=== PATIENT | female | born 1945 | race Caucasian/White ===

== ENCOUNTER 2021-02-19 12:58 | Emergency (ER) | payer OTHER ==
[~2021-02-19] VITALS: Ht 152.4 cm; Wt 85.7 kg
[~2021-02-19 12:58] MED LIST: CYMBALTA60 MG; DALMANE30 MG; MEDROL4 MG PO; PROVENTIL3 ML/2.5 M IH; SYNTHROID50 MCG; THORAZINE25 MG; ZITHROMAX500 MG PO
[2021-02-19] MEDS ORDERED: FLUCONAZOLE150 MG PO (13:09)
[2021-02-19] MEDS ORDERED: OMEPRAZOLE40 MG PO (13:09)
[2021-02-19] MEDS ORDERED: GABAPENTIN400 MG PO (13:09)
[2021-02-19] MEDS ORDERED: LORAZEPAM1 MG PO (13:09)
[2021-02-19] MEDS ORDERED: TRAZODONE HCL100 MG PO (13:10)
[2021-02-19] MEDS ORDERED: RISPERIDONE1 MG PO (13:10)
[2021-02-19] MEDS ORDERED: PEPCID AC20 MG PO (18:40)
[2021-02-19] MEDS ORDERED: DICY20TA PO (18:40)
== END 2021-02-19 18:52 | disposition home or self-care (01) ==
LOC: ER 12:58
DX: K29.60 Other gastritis without bleeding (principal); R10.31 Right lower quadrant pain

== ENCOUNTER 2021-12-17 11:05 | Emergency (ER) | payer OTHER ==
[~2021-12-17] VITALS: Ht 154.9 cm; Wt 83.9 kg
[~2021-12-17 11:05] MED LIST changes: +DICY20TA PO; +FLUCONAZOLE150 MG PO; +GABAPENTIN400 MG PO; +LORAZEPAM1 MG PO; +OMEPRAZOLE40 MG PO; +PEPCID AC20 MG PO; +RISPERIDONE1 MG PO; +TRAZODONE HCL100 MG PO
[2021-12-17] MEDS ORDERED: OSEL75CA PO (15:06)
[2021-12-17] MEDS ORDERED: MEDROLPACK PO (15:06)
[2021-12-17] MEDS ORDERED: TUSSI PRES-B L480 ML PO (15:08)
== END 2021-12-17 15:21 | disposition home or self-care (01) ==
LOC: ER 11:05
DX: B34.9 Viral infection, unspecified (principal); Z20.822 Contact with and (suspected) exposure to COVID-19

== ENCOUNTER 2022-07-09 12:33 | Emergency (ER) | payer OTHER ==
[~2022-07-09] VITALS: Ht 154.9 cm; Wt 63.0 kg
[~2022-07-09 12:33] MED LIST changes: +MEDROLPACK PO; +OSEL75CA PO; +TUSSI PRES-B L480 ML PO
== END 2022-07-09 16:05 | disposition home or self-care (01) ==
LOC: ER 12:33
DX: J44.1 Chronic obstructive pulmonary disease with (acute) exacerbation (principal); Z20.822 Contact with and (suspected) exposure to COVID-19

== ENCOUNTER 2023-02-16 10:27 | Emergency (ER) | payer OTHER ==
[~2023-02-16] VITALS: Ht 157.5 cm; Wt 81.6 kg
[2023-02-16] MEDS ORDERED: LORAZEPAM1 MG PO (10:45)
[2023-02-16] MEDS ORDERED: TRAZODONE HCL100 MG PO (10:46)
[2023-02-16] MEDS ORDERED: DULOXETINE HCL60 MG PO (10:46)
[2023-02-16] MEDS ORDERED: GABAPENTIN800 M1 PO (10:47)
[2023-02-16] MEDS ORDERED: RISPERIDONE1 MG PO (10:47)
[2023-02-16] MEDS ORDERED: PEPCID20 MG PO (15:41)
== END 2023-02-16 16:08 | disposition home or self-care (01) ==
LOC: ER 10:27
DX: K29.70 Gastritis, unspecified, without bleeding (principal); E03.9 Hypothyroidism, unspecified; M79.7 Fibromyalgia
CPT/HCPCS: 36415; 96365; 96366; 99284; J2405; J3490; J7042